=== PATIENT | male | born 2000 | race Two or more races ===

== ENCOUNTER 2024-05-30 19:31 | Emergency (ER) | payer OTHER ==
[~2024-05-30] VITALS: Ht 182.9 cm; Wt 77.1 kg
[2024-05-30] MEDS ORDERED: KETOROLAC TROMETHAMINE 30 MG VIAL IM STA (20:53)
[2024-05-30] MEDS ORDERED: CEFTRIAXONE SODIUM 1,000 MG VIAL IM STA (20:53)
[2024-05-30] MEDS ORDERED: LIDOCAINE HCL 1% 10ML VIAL ONE (21:05)
[2024-05-30] MEDS ORDERED: KETOROLAC TROMETHAMINE 30 MG VIAL ONE (21:05)
[2024-05-30] MEDS ORDERED: CEFTRIAXONE SODIUM 1,000 MG VIAL ONE (21:05)
== END 2024-05-30 21:19 | disposition home or self-care (01) ==
LOC: ER 19:32
DX: H60.91 Unspecified otitis externa, right ear (principal)